=== PATIENT | female | born 1980 | race Caucasian/White ===

== ENCOUNTER 2017-11-04 21:32 | Emergency (ER) | payer OTHER ==
[2017-11-04] MEDS ORDERED: diphenhydrAMINE HCL 25 MG CAPSULE (FP) PO ONE ×2 (21:35→22:48)
[2017-11-04 21:37] VITALS: TEMP 98.5; BMI 25.7
--- NOTE | 2017-11-04 21:38 | PDOC ---
Rapid Medical Evaluation Chief Complaint: Allergic Reaction Time Seen by Provider: 11/04/17 21:33 Medical Evaluation: Allergies Allergy/AdvReac Type Severity Reaction Status Date / Time No Known Allergies Allergy Verified 07/29/14 22:07 11/04/17 21:33 37 year old female c/o hives after doing cocaine 30 mins prior to arrival. no oral swelling, and respiratory distress. Pe: patient alert ox3. no oral swelling, breath sounds clear, Uvula midline + hives to left lower extremity. A: Allergic reaction P: patient to the ER further management of care. 11/04/17 21:36 Discharge Disposition - Diagnosis Allergic reaction Qualifiers: Encounter type: initial encounter Qualified Code(s): T78.40XA - Allergy, unspecified, initial encounter - Referrals - Patient Instructions - Post Discharge Activity
[2017-11-04] MEDS ORDERED: SODIUM CHLORIDE 1,000 ML IV STA (21:54)
--- NOTE | 2017-11-04 21:58 | PDOC ---
Attending Attestation - Resident Resident Name: Cristi Campos - ED Attending Attestation I have performed the following: I have examined & evaluated the patient, The case was reviewed & discussed with the resident, I agree w/resident's findings & plan, Exceptions are as noted <Emre Owens - Last Filed: 11/04/17 21:58> - HPI HPI: 11/04/17 22:17 The patient is a 37 year old female, with a significant past medical history of cocaine dependence (1 month), who presents to the emergency department with, an allergic reaction. As per patient, she snorted cocaine 30 minutes prior to her arrival and developed hives down her legs. She reports associated chest pain, shortness of breath, and increased anxiety. She denies recent fevers, chills, headache or dizziness. She denies recent nausea, vomit, diarrhea or constipation. She denies recent dysuria, frequency, urgency or hematuria. Allergies: NKA Past surgical history: None reported. Social history: Cocaine usage. Current smoker (10 cigarettes per day). Primary Care Physician: Dr. Ibrahim <Sri Broderick - Last Filed: 11/04/17 23:27> Heart Score/ECG Review #1 11/04/17 23:25 EKG performed at: 04 November 2017 at 22:49:13 Vent Rate 78 bpm DC interval 184 ms QRS duration 90 ms QT/QTc 388/442 ms P-R-T axes 48 29 42 Normal sinus rhythm Normal ECG <Sri Broderick - Last Filed: 11/04/17 23:27> Attestations - Attestations 11/04/17 22:18 Documentation prepared by Sri Broderick, acting as medical delivery driver for Emre Owens DO. <Sri Broderick - Last Filed: 11/04/17 23:27>
[2017-11-04] MEDS ORDERED: RANITIDINE HCL 150 MG TABLET (FP) PO ONE (22:01)
--- NOTE | 2017-11-04 22:09 | PDOC ---
History of Present Illness - General Chief Complaint: Allergic Reaction Stated Complaint: SUBSTANCE ABUSE Time Seen by Provider: 11/04/17 21:33 History Source: Patient Exam Limitations: No Limitations - History of Present Illness Initial Comments: 11/04/17 22:05 Patient is a 37F with no significant medical history here today complaining of hives after using cocaine 30 minutes prior to presentation. Patient endorses associated shortness of breath, chest pain and anxiety. Patient states that she' s not sure if she's having chest pain or if she is 'freaking out'. Patient states that her rash extends up her legs but has gotten better recently. Patient endorses snorting cocaine. Denies fevers, chills, nausea, vomiting, history of blood clots, leg swelling. Past History - Past Medical History Allergies/Adverse Reactions: Allergies Allergy/AdvReac Type Severity Reaction Status Date / Time No Known Allergies Allergy Verified 11/04/17 21:36 Home Medications: Ambulatory Orders Albuterol Sulfate Inhaler - [Ventolin HFA Inhaler -] 2 inh IH Q4H #1 inh Anemia: No Asthma: Yes Cancer: No Cardiac Disorders: No CVA: No COPD: No CHF: No Dementia: No Diabetes: No GI Disorders: Yes (EOSINOPHILIC COLITIS) Disorders: No HTN: No Hypercholesterolemia: No Liver Disease: No Seizures: No Thyroid Disease: No - Surgical History Cholecystectomy: Yes - Immunization History Immunization Up to Date: Yes - Suicide/Smoking/Psychosocial Hx Smoking Status: Yes Smoking History: Current every day smoker Have you smoked in the past 12 months: Yes Number of Cigarettes Smoked Daily: 10 If you are a former smoker, when did you quit?: APRIL 2012 Cigars Per Day: 0 Information on smoking cessation initiated: Yes 'Breaking Loose' booklet given: 11/04/17 Hx Alcohol Use: No Drug/Substance Use Hx: Yes (COCAINE) Substance Use Type: None, Cocaine Hx Substance Use Treatment: No Review of Systems - Review of Systems Comments:: 11/04/17 22:07 GENERAL/CONSTITUTIONAL: No fever or chills. No weakness. HEAD, EYES, EARS, NOSE AND THROAT: No change in vision. No ear pain or discharge. No sore throat. CARDIOVASCULAR: +chest pain. +shortness of breath RESPIRATORY: No cough, wheezing, or hemoptysis. GASTROINTESTINAL: No nausea, vomiting, diarrhea or constipation. GENITOURINARY: No dysuria, frequency, or change in urination. MUSCULOSKELETAL: No joint or muscle swelling or pain. No neck or back pain. SKIN: No rash NEUROLOGIC: No headache, vertigo, loss of consciousness, or change in strength/ sensation. ENDOCRINE: No increased thirst. No abnormal weight change HEMATOLOGIC/LYMPHATIC: No anemia, easy bleeding, or history of blood clots. ALLERGIC/IMMUNOLOGIC: +hives, +skin allergy. *Physical Exam - Vital Signs Last Vital Signs Temp Pulse Resp BP Pulse Ox 98.5 F 120 H 20 138/81 98 11/04/17 21:33 11/04/17 21:33 11/04/17 21:33 11/04/17 21:33 11/04/17 21:33 - Physical Exam Comments: 11/04/17 22:07 GENERAL: Awake, alert, and fully oriented, anxious appearing HEAD: No signs of trauma, normocephalic, atraumatic EYES: PERRLA, EOMI, sclera anicteric, conjunctiva clear ENT: Auricles normal inspection, hearing grossly normal, nares patent, oropharynx clear without exudates. Moist mucosa NECK: Normal ROM, supple, no lymphadenopathy, JVD, or masses LUNGS: No distress, speaks full sentences, clear to auscultation bilaterally HEART: Regular rate and rhythm, normal S1 and S2, no murmurs, rubs or gallops, peripheral pulses normal and equal bilaterally. ABDOMEN: Soft, nontender, normoactive bowel sounds. No guarding, no rebound. No masses EXTREMITIES: Normal inspection, Normal range of motion, no edema. No clubbing or cyanosis. NEUROLOGICAL: Cranial nerves II through XII grossly intact. Normal speech, normal gait, no focal sensorimotor deficits SKIN: Warm, Dry, uriticaria on legs ED Treatment Course - LABORATORY CBC & Chemistry Diagram: 11/04/17 20:40 11/04/17 20:40 - RADIOLOGY Radiology Studies Ordered: Category Date Time Status CHEST X-RAY PORTABLE* [RAD] Stat Radiology 11/04/17 21:56 Ordered Medical Decision Making - Medical Decision Making 11/04/17 22:08 Patient is 37F here today with uriticaria, chest pain and shortness of breath after using cocaine. Vital signs notable for tachycardia. DDx includes, but is not limited to: allergic reaction, vasospasm, reaction to using cocaine. Will evaluate with cardiac workup, serum preg. Will treat with benadryl, ranitidine, ativan, fluids. 11/04/17 23:14 EKG shows normal sinus rhythm with rate of 78. No st elevations/depressions. No significant t wave abnormalities. Normal axis. Normal intervals. 11/04/17 23:28 CBC normal. CMP/1st trop pending. 2nd trop due at 4am. Signed out to Dr Martínez. *DC/Admit/Observation/Transfer Diagnosis at time of Disposition: Chest pain - Discharge Dispostion Condition at time of disposition: Stable - Referrals Referrals: Shana Ibrahim [Primary Care Provider] - - Patient Instructions - Post Discharge Activity
[2017-11-04] MEDS ORDERED: RANITIDINE HCL 150 MG TABLET (FP) ONE (22:48)
[2017-11-04] MEDS ORDERED: LORazepam 2 MG/ML SDV VIAL ONE (22:49)
[2017-11-04 22:51] LABS: HEMATOCRIT 38.7 % (32.4-45.2); HEMOGLOBIN 12.9 GM/dL (10.7-15.3); MCH 29.7 pg (25.7-33.7); MCHC 33.3 g/dl (32.0-36.0); MEAN CELL VOLUME 89.1 fl (80-96); MEAN PLT VOLUME 7.2 fl (7.5-11.1); PLATELET COUNT 254 K/MM3 (134-434); RBC 4.34 M/mm3 (3.60-5.2); RDW 13.6 % (11.6-15.6); WHITE BLOOD COUNT 5.4 K/mm3 (4.0-10.0)
[2017-11-04 23:05] LABS: INR 1.02 (0.82-1.09); PROTHROMBIN TIME (PATIENT) 11.5 SEC (9.7-13.0)
[2017-11-04 23:55] LABS: ALBUMIN 3.7 g/dl (3.4-5.0); ANION GAP 8 (8-16); BILIRUBIN,TOTAL 0.5 mg/dL (0.2-1.0); BLOOD UREA NITROGEN 11 mg/dL (7-18); CALCIUM 8.7 mg/dL (8.5-10.1); CHLORIDE 108 mmol/L (98-107); CO2 26 mmol/L (21-32); CREATININE 1.1 mg/dL (0.55-1.02); GLUCOSE,RANDOM 92 mg/dL (74-106); POTASSIUM 3.5 mmol/L (3.5-5.1); SGOT/AST 13 U/L (15-37); SGPT/ALT 15 U/L (12-78); SODIUM 142 mmol/L (136-145); TOT PROT 6.7 g/dl (6.4-8.2)
[2017-11-04 23:58] LABS: ALK PHOS 68 U/L (45-117)
--- NOTE | 2017-11-05 00:03 | PDOC ---
*Physical Exam - Vital Signs Last Vital Signs Temp Pulse Resp BP Pulse Ox 98.5 F 120 H 20 138/81 98 11/04/17 21:33 11/04/17 21:33 11/04/17 21:33 11/04/17 21:33 11/04/17 21:33 ED Treatment Course - LABORATORY CBC & Chemistry Diagram: 11/04/17 20:40 11/04/17 20:40 - ADDITIONAL ORDERS Additional order review: Laboratory Results 11/04/17 11/04/17 20:40 20:40 PT with INR 11.50 INR 1.02 Serum , Qual Negative 11/04/17 20:40 RBC 4.34 MCV 89.1 MCHC 33.3 RDW 13.6 MPV 7.2 L - Medications Given in the ED: ED Medications Discontinued Medications Generic Name Dose Route Start Last Admin Trade Name Kenq PRN Reason Stop Dose Admin Diphenhydramine HCl 50 mg 11/04/17 21:35 11/04/17 23:07 Benadryl - PO 11/04/17 21:36 50 mg ONCE ONE Administration Sodium Chloride 1,000 mls @ 1,000 mls/hr 11/04/17 21:54 11/04/17 23:07 Normal Saline - IV 11/04/17 22:53 1,000 mls/hr ASDIR STA Administration Lorazepam 2 mg 11/04/17 21:54 11/04/17 23:07 Ativan Injection - IVPUSH 11/04/17 21:55 2 mg ONCE ONE Administration Ranitidine HCl 300 mg 11/04/17 22:01 11/04/17 23:07 Zantac - PO 11/04/17 22:02 300 mg ONCE ONE Administration Medical Decision Making - Medical Decision Making Patient signed out from Dr. Pendleton 37yo F presenting with anxiety, nausea, and vomiting after using cocaine. Given 50mg benadryl, 2mg ativan, 300mg Ranitidine, IV fluids. Troponin pending. Will repeat troponin at 4am. 11/05/17 00:04 Second Troponin is negative. EKG unremarkable Discharge home. Patient amenable to plan. 11/05/17 07:44 Laboratory Tests 11/04/17 11/04/17 11/04/17 20:40 20:40 20:40 WBC 5.4 RBC 4.34 Hgb 12.9 Hct 38.7 MCV 89.1 MCH 29.7 MCHC 33.3 RDW 13.6 Plt Count 254 MPV 7.2 L PT with INR 11.50 INR 1.02 Sodium Potassium Chloride Carbon Dioxide Anion Gap BUN Creatinine Creat Clearance w eGFR Random Glucose Calcium Total Bilirubin AST ALT Alkaline Phosphatase Creatine Kinase Troponin I Total Protein Albumin Serum , Qual Negative 11/04/17 11/05/17 20:40 03:40 WBC RBC Hgb Hct MCV MCH MCHC RDW Plt Count MPV PT with INR INR Sodium 142 Potassium 3.5 Chloride 108 H Carbon Dioxide 26 Anion Gap 8 BUN 11 Creatinine 1.1 H Creat Clearance w eGFR 56.52 Random Glucose 92 Calcium 8.7 Total Bilirubin 0.5 AST 13 L ALT 15 Alkaline Phosphatase 68 Creatine Kinase 63 74 Troponin I < 0.02 < 0.02 Total Protein 6.7 Albumin 3.7 Serum , Qual *DC/Admit/Observation/Transfer Diagnosis at time of Disposition: Chest pain Qualifiers: Chest pain type: unspecified Qualified Code(s): R07.9 - Chest pain, unspecified Allergic reaction Qualifiers: Encounter type: initial encounter Qualified Code(s): T78.40XA - Allergy, unspecified, initial encounter - Discharge Dispostion Disposition: HOME Condition at time of disposition: Stable - Referrals Referrals: Shana Ibrahim [Primary Care Provider] - - Patient Instructions Printed Discharge Instructions: DI for General Allergic Reactions Additional Instructions: You were seen in the emergency department for an allergic reaction. While here, you received some blood work and an electrocardiogram which did not show heart abnormalities. You were also given medicine which helped your symptoms. Follow-up with your primary care physician in the next 2-3 days. Return to the emergency department if: you have any recurrent symptoms, shortness of breath, throat tightening, lightheadedness, chest pain, or develop any other new or concerning symptoms. - Post Discharge Activity
[2017-11-05 04:34] VITALS: BP 128/82; PULSE 72
--- NOTE | 2017-11-05 08:04 | PDOC ---
Patient Follow-up (Call Back) - Post ED Follow - Up Condition at time of discharge: Stable Disposition at time of original discharge: HOME Reason for Call Back: Radiology (? density to L base per radiology this am Pt was seen for possible allergic rxn ater snorting cocaine Called pt to see how she was feeling but no answer and unable to l/m as mailbox full)
--- NOTE | 2017-11-05 11:33 | EKG ---
Test Reason : Blood Pressure : / mmHG Vent. Rate : 078 BPM Atrial Rate : 078 BPM P-R Int : 184 ms QRS Dur : 090 ms QT Int : 388 ms P-R-T Axes : 048 029 042 degrees QTc Int : 442 ms NORMAL SINUS RHYTHM NORMAL ECG WHEN COMPARED WITH ECG OF 07-FEB-2014 17:48, NO SIGNIFICANT CHANGE WAS FOUND Confirmed by GISELLE KENDALL MD ([id number]) on 11/05/2017 11:33:30 AM Referred By: Confirmed By:GISELLE KENDALL MD
--- NOTE | 2017-11-05 11:35 | EKG ---
Test Reason : Blood Pressure : / mmHG Vent. Rate : 058 BPM Atrial Rate : 058 BPM P-R Int : 200 ms QRS Dur : 080 ms QT Int : 440 ms P-R-T Axes : 057 060 061 degrees QTc Int : 431 ms SINUS BRADYCARDIA WITH SINUS ARRHYTHMIA OTHERWISE NORMAL ECG WHEN COMPARED WITH ECG OF 04-NOV-2017 22:49, NO SIGNIFICANT CHANGE WAS FOUND Confirmed by ENOCH MILLAN, GISELLE ([id number]) on 11/05/2017 11:35:22 AM Referred By: Confirmed By:GISELLE KENDALL MD
== END 2017-11-05 06:01 | disposition home or self-care (01) ==
LOC: JER 21:32
PROC: 3E033NZ Introduction of Analgesics, Hypnotics, Sedatives into Peripheral Vein, Percutaneous Approach (ICD-10-PCS; principal; 2017-11-04)
DX: T40.5X1A Poisoning by cocaine, accidental (unintentional), initial encounter (principal); F41.9 Anxiety disorder, unspecified; Y92.89 Other specified places as the place of occurrence of the external cause
CPT/HCPCS: 36415; 71045-TC-FY; 80053; 82550; 84484; 84703; 85027; 85610; 93005; 93010; 99283-25; J7030

== ENCOUNTER 2018-07-24 22:21 | Emergency (ER) | payer OTHER ==
[2018-07-24 22:27] VITALS: BP 131/77; PULSE 100; TEMP 98; BMI 28.1
--- NOTE | 2018-07-24 23:17 | PDOC ---
History of Present Illness - General Chief Complaint: Injury Stated Complaint: LEFT FOOT INJURY Time Seen by Provider: 07/24/18 23:14 - History of Present Illness Initial Comments: 07/24/18 23:34 The patient is a 37 year old female with a history of asthma who presents for evaluation of left 5th toe pain. The patient reports that she was walking when she accidentally kicked a wall with severe pain to the lateral aspect of her 5th toe prompting her presentation to the ED for further evaluation. The patient denies any other injuries and otherwise denies fevers, chills, SOB, chest pain, nausea, vomiting, or changes with urination or bowel movements. She has been able to ambulate on the foot with a limp. Past History - Past Medical History Allergies/Adverse Reactions: Allergies Allergy/AdvReac Type Severity Reaction Status Date / Time No Known Allergies Allergy Verified 07/24/18 22:27 Home Medications: Ambulatory Orders Albuterol Sulfate Inhaler - [Ventolin HFA Inhaler -] 2 inh IH Q4H #1 inh Anemia: No Asthma: Yes Cancer: No Cardiac Disorders: No CVA: No COPD: No CHF: No Dementia: No Diabetes: No GI Disorders: Yes (EOSINOPHILIC COLITIS) Disorders: No HTN: No Hypercholesterolemia: No Liver Disease: No Seizures: No Thyroid Disease: No - Surgical History Cholecystectomy: Yes - Immunization History Immunization Up to Date: Yes - Suicide/Smoking/Psychosocial Hx Smoking Status: Yes Smoking History: Unknown if ever smoked Have you smoked in the past 12 months: No Number of Cigarettes Smoked Daily: 10 If you are a former smoker, when did you quit?: APRIL 2012 Cigars Per Day: 0 Information on smoking cessation initiated: No 'Breaking Loose' booklet given: 11/04/17 Hx Alcohol Use: No Drug/Substance Use Hx: No Substance Use Type: None, Cocaine Hx Substance Use Treatment: No Review of Systems - Review of Systems Comments:: 07/24/18 23:39 Constitutional: No fevers, chills, fatigue, malaise HEENT: No Rhinorrhea, nasal congestion, visual changes Cardiovascular: No chest pain, syncope, palpitations, lightheadedness Respiratory: No Cough, SOB, Hemoptysis, Gastrointestinal: No Abdominal pain, Nausea, Vomiting, Constipation, Diarrhea, Melena Genitourinary: No Dysuria, Frequency, Urgency, Hesitancy, Hematuria, Flank pain Musculoskeletal: Left 5th toe pain. No Myalgia, arthralgia Skin: No rashes, itching, bruising, pallor Neurologic: No Headache, Dizziness, Numbness, Weakness, or Tingling Psychiatric: No Hallucinations. No SI or HI *Physical Exam - Vital Signs Last Vital Signs Temp Pulse Resp BP Pulse Ox 98.0 F 100 H 16 131/77 100 07/24/18 22:26 07/24/18 22:26 07/24/18 22:26 07/24/18 22:26 07/24/18 22:26 - Physical Exam Comments: 07/24/18 23:40 General Appearance: Nourished. No Apparent Distress HEENT: No Pharyngeal Erythema, Tonsillar Exudate, Tonsillar Erythema Neck: No Cervical Lymphadenopathy Respiratory/Chest: Lungs Clear, Normal Breath Sounds. No Crackles, Rales, Rhonchi, Wheezing Cardiovascular: Regular Rhythm, Regular Rate. No Murmur, Gallops, Rubs Gastrointestinal/Abdominal: Normal Bowel Sounds, Soft. No Guarding, Rebound, Tenderness Musculoskeletal: No CVA Tenderness Extremity: Tenderness to palpation at the left 5th distal metatarsal. Full ROM. Ambulatory with a limp. Normal Capillary Refill Integumentary: Normal Color, Dry, Warm Neurologic: Fully Oriented, Alert, Normal Mood/Affect, Normal Response, ED Treatment Course - RADIOLOGY Radiology Studies Ordered: Category Date Time Status FOOT-LEFT [RAD] Stat Radiology 07/24/18 23:15 Ordered Medical Decision Making - Medical Decision Making 07/24/18 23:40 The patient is a 37 year old female with a history of asthma who presents for evaluation of left 5th toe pain. Differential includes but is not limited to: Fracture, Contusion, Sprain. Given the patient's history and physical exam, we will obtain plain films to evaluate further. We will treat with motrin and continue to monitor and reassess while here in the ED. 07/25/18 00:01 Plain films are unremarkable and negative for fracture as preliminarily read by ED physician. We are comfortable discharging the patient home with primary care provider follow up. We discussed the results, plan, and return precautions with the patient who voiced understanding and is agreeable with the plan. *DC/Admit/Observation/Transfer Diagnosis at time of Disposition: Toe pain, left - Discharge Dispostion Disposition: HOME Condition at time of disposition: Stable Decision to Admit order: No - Referrals Referrals: Shana Ibrahim [Primary Care Provider] - - Patient Instructions Printed Discharge Instructions: DI for Contusion Additional Instructions: Rest, ice, elevate area. Apply ice to the area for 10 minutes every 2 hours for the first 2 days after the injury to reduce swelling. If you have any worsening of symptoms, including severe pain/swelling/redness/ numbness/changes in sensation/weakness/paralysis or any other concerns please return to the Emergency Department immediately. Please follow up with your doctor(s) within the next 3 days, but seek medical care sooner if your symptoms persist or worsen. Please call as soon as possible for an appointment. If you cannot follow up with your doctor please return to the Emergency Department for any urgent issues. You may use tylenol or motrin at home to help manage your pain. - Post Discharge Activity
[2018-07-24] MEDS ORDERED: IBUPROFEN 400 MG TABLET (FP) PO ONE (23:25)
--- NOTE | 2018-07-25 00:09 | PDOC ---
Attending Attestation - Resident Resident Name: EdytaFelipe - ED Attending Attestation I have performed the following: I have examined & evaluated the patient, The case was reviewed & discussed with the resident, I agree w/resident's findings & plan, Exceptions are as noted - HPI HPI: 07/24/18 23:54 The patient is a 37 year old female with a past medical history of asthma here today for evaluation of left toe pain. Patient reports that she kicked a wall when walking. She states she has severe left lateral pinky toe pain. Patient denies headache, lightheadedness. Denies fever, chills. Denies chest pain, shortness of breath. Denies nausea, vomiting, diarrhea, abdominal pain. Allergies: NKA PCP: Shana Ibrahim - Physicial Exam PE: 07/25/18 00:18 exam: well appearing in no distress R foot exam: mild ttp to the R pinky toe, no ttp at 5th metatarsal, slight bruising, no crepitus, sensatio nintact, no ttp elsewhere on foot or ankle - Medical Decision Making 07/25/18 00:17 xray neg for fx will dc with motrin and supprotive care
[2018-07-25] MEDS ORDERED: IBUPROFEN 600 MG TABLET (FP) PO ONE (00:37)
== END 2018-07-25 00:43 | disposition home or self-care (01) ==
LOC: JER 22:21
DX: M79.675 Pain in left toe(s) (principal); W22.8XXA Striking against or struck by other objects, initial encounter
CPT/HCPCS: 73630-TC-LT; 99281-25

== ENCOUNTER 2018-11-26 01:18 | Emergency (ER) | payer OTHER | END 2018-11-26 02:21 | disposition home or self-care (01) | LOC: JER 01:18 ==

== ENCOUNTER 2019-10-03 12:14 | Emergency (ER) | payer OTHER ==
--- NOTE | 2019-10-03 12:17 | PDOC ---
Rapid Medical Evaluation Time Seen by Provider: 10/03/19 12:16 Medical Evaluation: Allergies Allergy/AdvReac Type Severity Reaction Status Date / Time No Known Allergies Allergy Verified 11/26/18 01:45 10/03/19 12:16 I have performed a brief in-person evaluation of this patient. The patient presents with a chief complaint of: palpitations w/ fatigue x 1 week. Seen for same in 2013 w/ normal w/u including TSH. Normal holter w/ cards then. H/o asthma, substance abuse (cocaine in past). Pertinent physical exam findings:HR 100, and in NAD I have ordered the following:ekg/labs The patient will proceed to the ED for further evaluation. 10/03/19 12:21 10/03/19 12:21 Discharge Disposition - Diagnosis Palpitations - Referrals - Patient Instructions - Post Discharge Activity
[2019-10-03 12:20] VITALS: BMI 29.0
--- NOTE | 2019-10-03 12:56 | PDOC ---
History of Present Illness - General Chief Complaint: Palpitations Stated Complaint: PALPITATIONS Time Seen by Provider: 10/03/19 12:16 Past History - Medical History Allergies/Adverse Reactions: Allergies Allergy/AdvReac Type Severity Reaction Status Date / Time No Known Allergies Allergy Verified 10/03/19 12:17 Home Medications: Ambulatory Orders Albuterol Sulfate Inhaler - [Ventolin HFA Inhaler -] 2 inh IH Q4H PRN 10/03/19 Anemia: No Asthma: Yes Cancer: No Cardiac Disorders: No CVA: No COPD: No CHF: No Dementia: No Diabetes: No GI Disorders: Yes (EOSINOPHILIC COLITIS) Disorders: No HTN: No Hypercholesterolemia: No Liver Disease: No Seizures: No Thyroid Disease: No - Surgical History Cholecystectomy: Yes - Immunization History Immunization Up to Date: Yes - Psycho-Social/Smoking History Smoking Status: Yes Smoking History: Current every day smoker Have you smoked in the past 12 months: No Number of Cigarettes Smoked Daily: 10 If you are a former smoker, when did you quit?: APRIL 2012 Cigars Per Day: 0 Information on smoking cessation initiated: No 'Breaking Loose' booklet given: 11/04/17 - Substance Abuse Hx (Audit-C & DAST Scrn) How often the patient has a drink containing alcohol: Monthly or less Number of drinks the patient has on a typical day: 1 or 2 How often the patient has six or more drinks on one occasion: Never Score: In Men: 4 or > Positive; In Women: 3 or > Positive: 1 Screen Result (Pos requires Nsg. Audit-10AR): Negative In the last yr the pt used illegal drug/Rx for NonMed reason: No Score: Yes response is considered Positive: 0 Screen Result (Positive result requires Nsg. 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 Palpitations feel like heart sometimes fast sometimes "off" last a few minutes a few times a day, resolve on own, no triggers, only in daytime (no specific time), nonexertional (working, driving, shower), never wake from sleep, no new anxiety or stress, associated with feeling of slight diffuse chest pressure only with deep breaths only during episodes, not associated with N/V or numbness/tingling or chest pain or lightheadedness or vision changes or SOB. Pt states hx similar sx in 2013 seen here and by PCP with [facility] and told it was due to her unknown bipolar medication so she stopped taking it. Denies feeling depressed or manic, SI/HI/AVH. Endorses COVID+ in July, since then been taking 4 supplements vit B12, vit D, elderberry, and unknown root? and changed diet to vegan and decreased smoking from 10 pulls/day to 2 pulls/day. Denies weight loss/gain, alcohol, drug use, hx DVT/PE, travel, estrogen or hormone use, leg swelling or pain, malignancy, hemoptysis, cough, syncope, lightheadedness. Pt feels fatigued right now but no palpitations since this AM. ROS: Constitutional: Positive for fatigue. Negative for chills, fever, diaphoresis. HENT: Negative for sore throat, rhinorrhea, congestion. Eyes: Negative for visual disturbance. Respiratory: Negative for shortness of breath, cough, and wheezing. Cardiovascular: Positive for palpitations, chest pressure. Negative for chest pain, and leg swelling. Gastrointestinal: Negative for abdominal pain, blood in stool, constipation, diarrhea, nausea, and vomiting. Genitourinary: Negative for dysuria, flank pain, and hematuria. Musculoskeletal: Negative for myalgias, back pain, and neck pain. Skin: Negative for rash. Neurological: Negative for light-headedness, dizziness, vertigo, syncope, weakness, numbness and headaches. Psychiatric/Behavioral: Negative for behavioral problems and confusion. PE: Gen: Alert, NAD, comfortable-appearing, blinks frequently HEENT: PERRL, EOMI, MMM, NCAT. No conjunctival pallor. Sclera are non-icteric. CV: Regular rate and rhythm. No murmurs, rubs, or gallops. PULM: No resp distress. CTAB, no wheezes, rales, or rhonchi. ABD: soft, NT/ND, no rebound tenderness or guarding, no CVA tenderness. BACK: No TTP of c/t/l-spine. No step-offs or deformities. MSK: No bony deformities. 2+ pulses in all extremities. NEURO: AAOx3. PERRL. CN 2-12 intact. 5/5 strength in all extremities. Sensation to light touch intact in all extremities. No pronator drift. No dysmetria. No dysdiadochokinesia. No abnormal nystagmus. No skew deviation. Normal gait. EXTREMITIES: No cyanosis. No clubbing. No edema. No calf tenderness. PSYCH: Normal mood and thought pattern. SKIN: Warm and dry. Normal capillary refill. No rashes. No jaundice. 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 Hemodynamically stable, afebrile, neurologically intact. Ddx: anxiety, ACS/GA (HEART score 1 for smoking), arrhythmia, thyroid pathology, , infection, metabolic derangement, anemia, PE (very low concern, Wells 0 but HR 100 - r/o with D-dimer) -EKG -CBC,CMP,HCG,TSH,D-dimer,Cardiac profile -Dispo: pending workup and reassessment, likely d/c home 10/03/19 13:09 Labs reviewed. No concerning findings. EKG reviewed: normal sinus rhythm, 81bpm, normal axis, normal intervals, no TWIs, no ST elevations or depressions CXR reviewed: No acute pathology Will discharge home with PCP f/u. Return precautions given. Pt understands all discharge instructions and all questions were answered. Discharge - Discharge Information Problems reviewed: Yes Clinical Impression/Diagnosis: Palpitations, Chest pressure Condition: Improved Disposition: HOME - Admission No - Follow up/Referral Referrals: Shana Ibrahim [Non Staff, Medical] - - Patient Discharge Instructions Patient Printed Discharge Instructions: DI for Palpitations Additional Instructions: You have been seen in the Emergency Department for your palpitations and chest pressure. Your EKG, chest X-ray, and labs, including Troponin (a heart enzyme), show no signs concerning for an emergent condition such as a heart attack, abnormal heart rhythm, PE (clot in your lungs), or thyroid problem. If you experience pain, you can take Tylenol or Ibuprofen as directed on the medication bottle, but do not exceed 3g of Ibuprofen or 4g of Tylenol a day. Follow-up with your primary care doctor within 1 week. Return to the Emergency Department immediately if you experience chest pain, difficulty breathing, passing out, or any other new or worsening symptom. - Post Discharge Activity
[2019-10-03 13:03] LABS: BASO % 1.4 % (0-2.0); EOS % 4.3 % (0-4.5); HEMATOCRIT 37.3 % (32.4-45.2); LYMPH % 36.6 % (8-40); MCH 27.9 pg (25.7-33.7); MCHC 32.2 g/dl (32.0-36.0); MEAN CELL VOLUME 86.7 fl (80-96); MEAN PLT VOLUME 8.1 fl (7.5-11.1); MONO % 5.8 % (3.8-10.2); NEUT % 51.9 % (42.8-82.8); PLATELET COUNT 220 K/MM3 (134-434); RDW 13.5 % (11.6-15.6); WHITE BLOOD COUNT 3.5 K/mm3 (4.0-10.0)
[2019-10-03 13:38] LABS: ALBUMIN 3.8 g/dl (3.4-5.0); ALK PHOS 63 U/L (45-117); ANION GAP 6 MMOL/L (8-16); BILIRUBIN,TOTAL 0.8 mg/dL (0.2-1); BLOOD UREA NITROGEN 7.6 mg/dL (7-18); CALCIUM 8.9 mg/dL (8.5-10.1); CHLORIDE 110 mmol/L (98-107); CO2 26 mmol/L (21-32); CREATININE 0.8 mg/dL (0.55-1.3); GLUCOSE,RANDOM 94 mg/dL (74-106); POTASSIUM 4.1 mmol/L (3.5-5.1); SGOT/AST 16 U/L (15-37); SGPT/ALT 18 U/L (13-61); SODIUM 143 mmol/L (136-145); TOT PROT 6.7 g/dl (6.4-8.2)
[2019-10-03 14:09] LABS: URINE APPEARANCE CLEAR; URINE BILIRUBIN NEGATIVE (NEGATIVE); URINE COLOR YELLOW; URINE GLUCOSE (UA) NEGATIVE (NEGATIVE); URINE KETONE NEGATIVE (NEGATIVE); URINE LEUK ESTERASE NEGATIVE (NEGATIVE); URINE NITRITE NEGATIVE (NEGATIVE); URINE PROTEIN NEGATIVE (NEGATIVE); URINE UROBILINOGEN 0.2 mg/dL (0.2-1.0)
[2019-10-03 14:12] LABS: HCG,QUALITATIVE URINE Negative
[2019-10-03] MEDS ORDERED: ACETAMINOPHEN 325 MG TABLET (FP) PO ONE (14:32)
[2019-10-03] MEDS ORDERED: ACETAMINOPHEN 325 MG TABLET (FP) ONE (14:34)
--- NOTE | 2019-10-03 14:34 | PDOC ---
Documentation entered by Latasha Trammell SCRIBE, acting as scribe for Fátima Duke MD. Fátima Duke MD: This documentation has been prepared by the scribe, Latasha Trammell SCRIBE, under my direction and personally reviewed by me in its entirety. I confirm that the documentation accurately reflects all work, treatment, procedures, and medical decision making performed by me. Attending Attestation - Resident Resident Name: KelsiletyUnique - ED Attending Attestation I have performed the following: I have examined & evaluated the patient, The case was reviewed & discussed with the resident, I agree w/resident's findings & plan, Exceptions are as noted - HPI HPI: 10/03/19 12:44 The patient is a 39-year-old female with a past medical history significant for bipolar, asthma, eosinophilic colitis, who presents to the emergency department with palpitations and fatigue. The patient presents with a week history of intermittent episodes of palpitations and generalized fatigue, associated with chest pressure with deep breathing during an episode. Denies chest pain, lightheadedness, shortness of breath, nausea or vomiting. NO FH sudden cardiac . Former tob use, quit <1 year ago as per patient. Denies any other illicit drug use, reports using cocaine one time in the past but none since. Denies recent travel. No h/o clots. No exogenous hormone use. - Physicial Exam PE: 10/03/19 14:18 General: well appearing, NAD Chest: CTAB, good air entry, no wheezes rales or rhonchi CVS: + s1 s2, RRR, no m/r/g Extremities: no LE edema, warm and well perfused Neuro: Aox3, speech fluent, face symmetric, no focal deficits - Medical Decision Making 10/03/19 14:32 39 yo F with episode of palpitations and mild chest pressure on inspiration but denies symptoms at present time, low suspicion for PE however heart rate 100 at triage so cannot PERC out so will send D-dimer. Possible post-viral pericarditis although EKG NSR without findings concerning for pericarditis. Will also r/o post-viral PNA. Plan: -labs -cxr -reassess -if labs and imaging unremarkable will d/c with return precautions, recommend PMD f/u This clinical encounter is taking place during a federal and state health care emergency attributable to the novel [place] Virus pandemic. The [place] of the Department of Health and Human Services has declared, pursuant to the Public Health Service Act 319F-3 (42 U.S.C. 247d-6d), that a covered persons activities related to medical countermeasures against COVID-19 will be immune from liability under Federal and State law. Discharge - Discharge Information Problems reviewed: Yes Clinical Impression/Diagnosis: Palpitations - Follow up/Referral Referrals: Shana Ibrahim [Primary Care Provider] - - Patient Discharge Instructions - Post Discharge Activity
[2019-10-03 15:01] VITALS: BP 105/67; PULSE 78; TEMP 98.4
--- NOTE | 2019-10-05 17:38 | EKG ---
Test Reason : Blood Pressure : / mmHG Vent. Rate : 081 BPM Atrial Rate : 081 BPM P-R Int : 178 ms QRS Dur : 080 ms QT Int : 378 ms P-R-T Axes : 040 040 042 degrees QTc Int : 439 ms NORMAL SINUS RHYTHM NORMAL ECG WHEN COMPARED WITH ECG OF 05-NOV-2017 03:38, NO SIGNIFICANT CHANGE WAS FOUND Confirmed by RIVERA MENDEZ MD ([id number]) on 10/05/2019 5:37:30 PM Referred By: Confirmed By:RIVERA MENDEZ MD
== END 2019-10-03 15:01 | disposition home or self-care (01) ==
LOC: JER 12:14
DX: R00.2 Palpitations (principal)
CPT/HCPCS: 36415; 71046-TC-FY; 80053; 81003; 82550; 84443; 84484; 84703; 85025; 85379; 93005; 93010; 99285-25

== ENCOUNTER 2019-11-07 12:54 | Emergency (ER) | payer OTHER ==
--- NOTE | 2019-11-07 13:05 | PDOC ---
Rapid Medical Evaluation Time Seen by Provider: 11/07/19 12:59 Medical Evaluation: Allergies Allergy/AdvReac Type Severity Reaction Status Date / Time No Known Allergies Allergy Verified 10/03/19 12:17 11/07/19 12:59 Pt is a 39 y/o F presents to the ER with L sided facial numbness and L arm numbness starting this morning when she woke up at 8am. She called her PCP who told her to come to the ER for evaluation. Exam: decreased sensation to the L cheek and chin Orders: labs, IV Pt to proceed to the ER for further evaluation Discharge Disposition - Diagnosis Numbness - Referrals - Patient Instructions - Post Discharge Activity
[2019-11-07 13:08] VITALS: BP 134/77; PULSE 94; TEMP 98.6; BMI 27.7
--- NOTE | 2019-11-07 14:00 | PDOC ---
History of Present Illness - General Chief Complaint: CVA/TIA Stated Complaint: LF ARM/LF FACE NUMBNESS Time Seen by Provider: 11/07/19 12:59 History Source: Patient Exam Limitations: No Limitations - History of Present Illness Initial Comments: 11/07/19 14:44 HPI: This is a 39 y/o female with a PMH of asthma presenting to the ED because of left face and arm numbness that began when she woke up at 8a.m. today. The numbness has been constant and unchanged and her PCP advised her to come in. She denies any facial drooping, slurred speech, blurry vision, ataxia, headache, chest pain, or SOB. Denied hx of migraines. ROS: GENERAL/CONSTITUTIONAL: No fever/chills. No weakness. HEAD, EYES, EARS, NOSE AND THROAT: No change in vision. No blurry vision. CARDIOVASCULAR: No chest pain or shortness of breath. RESPIRATORY: No cough, wheezing GASTROINTESTINAL: No nausea, vomiting GENITOURINARY: No dysuriaor change in urination. MUSCULOSKELETAL:No neck or back pain. SKIN: No rash NEUROLOGIC: No headache, vertigo, loss of consciousness, or change in strength. Yes change in sensation. PMH: Asthma, [place] palsy, bipolar dx PSx: Gallbladder Social Hx: Denied tobacco. Occasional Etoh. Meds: Denied Allergies: Denied PE: GENERAL: Awake, alert, and fully oriented, in no acute distress. Patient sitting comfortably in chair, conversing normally. HEAD: No signs of trauma. EYES: PERRL, EOMI NECK: Normal ROM, supple, no lymphadenopathy, JVD, or masses LUNGS: Breath sounds equal, clear to auscultation bilaterally. No wheezes, and no crackles HEART: Regular rate and rhythm, normal S1 and S2, no murmurs, rubs or gallops ABDOMEN: Soft, nontender. EXTREMITIES: Normal range of motion, no edema. NEUROLOGICAL: Cranial nerves II through IV and XII grossly intact. Decreased sensation on left side of face and left arm. Normal speech, normal gait. Strength 5/5 bilaterally in all extremities SKIN: Warm, Dry, normal turgor, no rashes or lesions noted. MDM: This is a 39 y/o female with a PMH of asthma presenting to the ED because of left face and arm numbness that began when she woke up at 8a.m. today. Patient only has subjective numbness, no motor symptoms, no weakness, no focal neurological deficits. Patient with no risk factors r/o stroke vs radiculopathy HEAD CT W/O CONTRAST: Impression: No evidence of a focal intracranial lesion or hemorrhage is seen. Case discussed with Dr. Chris Norwood, emergency room caring attending physician 11/07/19 14:50 11/07/19 15:22 CBC WBC 4.5 K/mm3 (4.0-10.0) 11/07/19 13:50 RBC 4.50 M/mm3 (3.60-5.2) 11/07/19 13:50 Hgb 12.8 GM/dL (10.7-15.3) 11/07/19 13:50 Hct 39.5 % (32.4-45.2) 11/07/19 13:50 MCV 87.8 fl (80-96) 11/07/19 13:50 MCH 28.4 pg (25.7-33.7) 11/07/19 13:50 MCHC 32.4 g/dl (32.0-36.0) 11/07/19 13:50 RDW 13.6 % (11.6-15.6) 11/07/19 13:50 Plt Count 239 K/MM3 (134-434) 11/07/19 13:50 MPV 8.1 fl (7.5-11.1) 11/07/19 13:50 Absolute Neuts (auto) 2.7 K/mm3 (1.5-8.0) 11/07/19 13:50 Neutrophils % 58.8 % (42.8-82.8) 11/07/19 13:50 Lymphocytes % 33.1 % (8-40) 11/07/19 13:50 Monocytes % 5.5 % (3.8-10.2) 11/07/19 13:50 Eosinophils % 1.8 % (0-4.5) 11/07/19 13:50 Basophils % 0.8 % (0-2.0) 11/07/19 13:50 Nucleated RBC % 0 % (0-0) 11/07/19 13:50 No leukcytosis, no anemia CMP Sodium 141 mmol/L (136-145) 11/07/19 13:50 Potassium 3.8 mmol/L (3.5-5.1) 11/07/19 13:50 Chloride 109 mmol/L (98-107) H 11/07/19 13:50 Carbon Dioxide 24 mmol/L (21-32) 11/07/19 13:50 Anion Gap 8 MMOL/L (8-16) 11/07/19 13:50 BUN 5.8 mg/dL (7-18) L 11/07/19 13:50 Creatinine 0.8 mg/dL (0.55-1.3) 11/07/19 13:50 Est GFR (CKD-EPI)AfAm 109.16 11/07/19 13:50 Est GFR (CKD-EPI)NonAf 94.18 11/07/19 13:50 Random Glucose 89 mg/dL (74-106) 11/07/19 13:50 Calcium 8.8 mg/dL (8.5-10.1) 11/07/19 13:50 Total Bilirubin 0.5 mg/dL (0.2-1) 11/07/19 13:50 AST 13 U/L (15-37) L 11/07/19 13:50 ALT 15 U/L (13-61) 11/07/19 13:50 Alkaline Phosphatase 62 U/L (45-117) 11/07/19 13:50 Creatine Kinase 60 U/L (26-192) 11/07/19 13:50 Troponin I < 0.02 ng/ml (0.00-0.05) 11/07/19 13:50 Total Protein 6.9 g/dl (6.4-8.2) 11/07/19 13:50 Albumin 3.8 g/dl (3.4-5.0) 11/07/19 13:50 Triglycerides 134 mg/dL (0-150) 11/07/19 13:50 Cholesterol 132 mg/dL (50-200) 11/07/19 13:50 Total LDL Cholesterol 63 mg/dL (5-100) 11/07/19 13:50 HDL Cholesterol 55 mg/dL (40-60) 11/07/19 13:50 Troponin negative electrolytes WNL 11/07/19 15:32 Dr. Norwood spoke with Dr. Bennett who advised that the patient can leave with follow-up in his office. His office will call her with next available appointment. 11/07/19 15:35 Patient to be d/c with clear follow-up and indications to return to ED. NIH Stroke Scale - Last Known Well Date/Time & Onset Date Last Known Well: 11/07/19 Time Last Known Well: 08:00 - Initial Evaluation Level of consciousness: Alert Ask patient the month and their age: Answers both correctly Ask patient to open & close eyes; make fist and let go: Obeys both correctly Best gaze (horizontal eye movement): Normal Visual field testing: No visual field loss Facial paresis (Show teeth/raise eyebrows/close eyes tight): Normal symmetrical movement Motor Function: Left Arm: Normal Motor Function: Right Arm: Normal (extends arm 90 (or 45) degrees for 10 seconds without drift Motor Function: Left Leg: Normal (extends leg 30 degrees for 5 seconds without drift) Motor Function: Right Leg: Normal (extends leg 30 degrees for 5 seconds without drift) Limb Ataxia: No ataxia Sensory(Use pinprick test arms,legs,trunk,face/side to side): Mild to moderate decrease in sensation Best language (Describe picture, name items, read sentences): No Aphasia Dysarthria (read several words): Normal articulation Extinction and Inattention: No abnormality - Total Score NIH Stroke Scale Score: 1 Past History - Medical History Allergies/Adverse Reactions: Allergies Allergy/AdvReac Type Severity Reaction Status Date / Time No Known Allergies Allergy Verified 10/03/19 12:17 Home Medications: Ambulatory Orders Albuterol Sulfate Inhaler - [Ventolin HFA Inhaler -] 2 inh IH Q4H PRN 10/03/19 Anemia: No Asthma: Yes Cancer: No Cardiac Disorders: No CVA: No COPD: No CHF: No Dementia: No Diabetes: No GI Disorders: Yes (EOSINOPHILIC COLITIS) Disorders: No HTN: No Hypercholesterolemia: No Liver Disease: No Seizures: No Thyroid Disease: No - Surgical History Cholecystectomy: Yes - Immunization History Immunization Up to Date: Yes - Psycho-Social/Smoking History Smoking Status: Yes Smoking History: Never smoked Have you smoked in the past 12 months: No Number of Cigarettes Smoked Daily: 10 If you are a former smoker, when did you quit?: APRIL 2012 Cigars Per Day: 0 'Breaking Loose' booklet given: 11/04/17 - Substance Abuse Hx (Audit-C & DAST Scrn) How often the patient has a drink containing alcohol: Never Score: In Men: 4 or > Positive; In Women: 3 or > Positive: 0 Screen Result (Pos requires Nsg. Audit-10AR): Negative *Physical Exam - Vital Signs Last Vital Signs Temp Pulse Resp BP Pulse Ox 98.6 F 94 H 20 134/77 98 11/07/19 13:01 11/07/19 13:01 11/07/19 13:01 11/07/19 13:01 11/07/19 13:01 Heart Score/ECG Review - ECG Intrepretation Comment:: 11/07/19 15:31 EKG with nomal sinus rhythm, no ST elevations or T wave inversions. Vent rate 64bpm, NM interval 186, QRS duration 78ms, Qt/QTc 424/437 ED Treatment Course - LABORATORY CBC & Chemistry Diagram: 11/07/19 13:50 11/07/19 13:50 Discharge - Discharge Information Problems reviewed: Yes Clinical Impression/Diagnosis: Numbness Condition: Stable Disposition: HOME - Admission No - Follow up/Referral Referrals: Eliecer Castillo MD [Staff Physician] - - Patient Discharge Instructions Patient Printed Discharge Instructions: DI for Numbness/tingling Additional Instructions: You were given a referral for Dr. Bennett who is a neurologist. His office will call you with the soonest appointment time. If you do not hear from them, give them a call. Please follow-up with him in the next week. You can take 500mg alleve 3x per day as needed for neck pain/numbness. You can also apply a warm compress to neck. Return to the ED if: Numbness gets worse. You develop any weakness, trouble walking, or motor symptoms. You have any chest pain, severe headache, or any other new or concerning symptoms. - Post Discharge Activity
[2019-11-07] MEDS ORDERED: SODIUM CHLORIDE 1,000 ML IV SCH (14:15)
[2019-11-07 14:45] LABS: URINE APPEARANCE CLEAR; URINE BILIRUBIN NEGATIVE (NEGATIVE); URINE COLOR YELLOW; URINE GLUCOSE (UA) NEGATIVE (NEGATIVE); URINE KETONE NEGATIVE (NEGATIVE); URINE LEUK ESTERASE NEGATIVE (NEGATIVE); URINE NITRITE NEGATIVE (NEGATIVE); URINE PROTEIN NEGATIVE (NEGATIVE); URINE UROBILINOGEN 0.2 mg/dL (0.2-1.0)
[2019-11-07 14:46] LABS: BASO % 0.8 % (0-2.0); EOS % 1.8 % (0-4.5); HEMATOCRIT 39.5 % (32.4-45.2); HEMOGLOBIN 12.8 GM/dL (10.7-15.3); LYMPH % 33.1 % (8-40); MCH 28.4 pg (25.7-33.7); MCHC 32.4 g/dl (32.0-36.0); MEAN CELL VOLUME 87.8 fl (80-96); MEAN PLT VOLUME 8.1 fl (7.5-11.1); MONO % 5.5 % (3.8-10.2); NEUT % 58.8 % (42.8-82.8); PLATELET COUNT 239 K/MM3 (134-434); RDW 13.6 % (11.6-15.6); WHITE BLOOD COUNT 4.5 K/mm3 (4.0-10.0)
[2019-11-07 14:49] LABS: HCG,QUALITATIVE URINE Negative
[2019-11-07 14:54] LABS: ACTIVATED PTT 27.9 SECONDS (25.2-36.5)
[2019-11-07 14:57] LABS: INR 0.94 (0.83-1.09); PROTHROMBIN TIME (PATIENT) 11.1 SEC (9.7-13.0)
[2019-11-07 15:14] LABS: ALBUMIN 3.8 g/dl (3.4-5.0); ALK PHOS 62 U/L (45-117); ANION GAP 8 MMOL/L (8-16); BILIRUBIN,TOTAL 0.5 mg/dL (0.2-1); BLOOD UREA NITROGEN 5.8 mg/dL (7-18); CALCIUM 8.8 mg/dL (8.5-10.1); CHLORIDE 109 mmol/L (98-107); CHOLESTEROL 132 mg/dL (50-200); CO2 24 mmol/L (21-32); CREATININE 0.8 mg/dL (0.55-1.3); GLUCOSE,RANDOM 89 mg/dL (74-106); HDL CHOLESTEROL 55 mg/dL (40-60); LDL CHOLESTEROL (ONLY SJRH) 63 mg/dL (5-100); POTASSIUM 3.8 mmol/L (3.5-5.1); SGOT/AST 13 U/L (15-37); SGPT/ALT 15 U/L (13-61); SODIUM 141 mmol/L (136-145); TOT PROT 6.9 g/dl (6.4-8.2); TRIGLYCERIDES 134 mg/dL (0-150)
--- NOTE | 2019-11-07 15:24 | PDOC ---
Documentation entered by Cheli Sanders SCRIBE, acting as scribe for Chris Norwood MD. Chris Norwood MD: This documentation has been prepared by the elaibeTommy Ana, SCRIBE, under my direction and personally reviewed by me in its entirety. I confirm that the documentation accurately reflects all work, treatment, procedures, and medical decision making performed by me. Attending Attestation - Resident Resident Name: Millicent Dunn - ED Attending Attestation I have performed the following: I have examined & evaluated the patient, The case was reviewed & discussed with the resident, I agree w/resident's findings & plan, Exceptions are as noted - HPI HPI: 11/07/19 13:59 Patient is a 39 year old female with a significant past medical history of bipolar, asthma, and eosinophilic colitis, who presents to the ED with left sided numbness since earlier this morning. Patient stated the numbness has been constant and that her PCP told her to come to ED. Patient denies: headache, facial dropping, blurry vision, slurred speech, ataxia, SOB, chest pain, or any other related symptoms. Allergies: NKDA - Physicial Exam PE: 11/07/19 14:00 Vitals: Triage Vital signs reviewed General Appearance: no acute distress, well nourished well developed, Head: Atraumatic, normocephalic Eyes: Pupils equal reactive round, extraocular movement intact Cardiac: Regular rate and rhythm, no murmurs, no rubs, no gallops, Lungs: Clear to auscultation bilateral, good air movement bilaterally, Abdomen: Soft, nondistended, normal bowel sounds, nontender to palpation Rectal: Exam deferred Extremities: Full range of motion to all extremities, no cyanosis, clubbing, or edema Skin: Warm and dry, no rashes or lesions, no petechiae Neuro: AOX3; Cranial Nerves 2-12 grossly c intact, Strength intact to all extremities, Sensation intact to all extremities, gait normal Psych: normal mood, normal affect - Medical Decision Making 11/10/19 18:49 Well-appearing no apparent distress pain and very subjective slight decrease in to touch along face side of neck and arm likely cervical radiculopathy in nature Case discussed with neurology Dr. Castillo, low risk for CVA based on hx and examination will follow-up with Dr. Castillo this week in office Patient amenable to plan Findings, the need for follow-up and strict return structures constipation. Discharge - Discharge Information Problems reviewed: Yes Clinical Impression/Diagnosis: Numbness Condition: Stable Disposition: HOME - Follow up/Referral Referrals: Eliecer Castillo MD [Staff Physician] - - Patient Discharge Instructions Patient Printed Discharge Instructions: DI for Numbness/tingling Additional Instructions: You were given a referral for Dr. Bennett who is a neurologist. His office will call you with the soonest appointment time. If you do not hear from them, give them a call. Please follow-up with him in the next week. You can take 500mg alleve 3x per day as needed for neck pain/numbness. You can also apply a warm compress to neck. Return to the ED if: Numbness gets worse. You develop any weakness, trouble walking, or motor symptoms. You have any chest pain, severe headache, or any other new or concerning symptoms. - Post Discharge Activity
--- NOTE | 2019-11-08 09:20 | EKG ---
Test Reason : Blood Pressure : / mmHG Vent. Rate : 064 BPM Atrial Rate : 064 BPM P-R Int : 186 ms QRS Dur : 078 ms QT Int : 424 ms P-R-T Axes : 035 020 030 degrees QTc Int : 437 ms NORMAL SINUS RHYTHM NORMAL ECG WHEN COMPARED WITH ECG OF 03-OCT-2019 12:29, NO SIGNIFICANT CHANGE WAS FOUND Confirmed by MD CALLY, YRN ([id number]) on 11/08/2019 9:20:08 AM Referred By: Confirmed By:YRN ALAMO MD
== END 2019-11-07 16:14 | disposition home or self-care (01) ==
LOC: JER 12:54
PROC: 3E0337Z Introduction of Electrolytic and Water Balance Substance into Peripheral Vein, Percutaneous Approach (ICD-10-PCS; principal; 2019-11-07)
DX: R20.9 Unspecified disturbances of skin sensation (principal)
CPT/HCPCS: 36415; 70450-TC; 80053; 80061; 81003; 82550; 83721; 84484; 84703; 85025; 85610; 85730; 86850; 86900; 86901; 87086; 93005; 93010; 99285-25

== ENCOUNTER 2020-04-17 19:16 | Emergency (ER) | payer OTHER ==
[2020-04-17 19:23] VITALS: BP 142/84; PULSE 94; TEMP 98.3; BMI 29.0
== END 2020-04-17 20:45 | disposition home or self-care (01) ==
LOC: JERFT 19:16
DX: R07.89 Other chest pain (principal)
CPT/HCPCS: 93005; 93010; 99283-25

== ENCOUNTER 2020-06-05 07:28 | Emergency (ER) | payer BC, OTHER ==
[2020-06-05 08:02] VITALS: BP 124/69; PULSE 108; TEMP 97.8; BMI 28.2
== END 2020-06-05 10:21 | disposition home or self-care (01) ==
LOC: JER 07:28
DX: M79.605 Pain in left leg (principal)
CPT/HCPCS: 93971-TC; 99284-25